=== PATIENT | female | born 1955 | race Caucasian/White ===

== ENCOUNTER → 2023-07-21 10:25 | Outpatient (REF) | payer OTHER, MEDICARE, SELFPAY ==
[2023-07-21 11:06] LABS: % Basophils 0.5 % (0-2); % Eosinophils 4.7 % (0-6); % Immature Granulocytes 1.4 % (0-0.5); % Monocytes 8.5 % (1.7-9.3); % Neutrophils 76.9 % (42.2-75.2); Absolute Eosinophils 0.3 10^3/uL (0-0.7); Absolute Immature Granulocytes 0.1 10^3/uL (0-0.05); Absolute Lymphocytes 0.5 10^3/uL (1.2-3.4); Absolute Monocytes 0.5 10^3/uL (0.1-0.6); Absolute Neutrophils 4.4 10^3/uL (1.4-6.5); Hematocrit 26.5 % (37.0-47.0); Hemoglobin 8.3 g/dL (12.0-16.0); Mean Corp Hgb Conc. 31.3 g/dL (33.0-37.0); Mean Corpuscular Hgb 27.7 pg (27.0-31.0); Mean Corpuscular Volume 88.3 fL (81.0-99.0); Mean Platelet Volume 10.3 fL (7.4-10.4); Nucleated Red Blood Cells % 0 %; Platelet Count 356 10^3/uL (130-400); Red Cell Dist. Width 13.8 % (11.5-14.5); White Blood Cell Count 5.8 10^3/uL (4.8-10.8)
[2023-07-21 11:16] LABS: Blood Urea Nitrogen 40 mg/dl (7-17); Calcium 9.2 mg/dl (8.4-10.2); Carbon Dioxide 26 mmol/L (22-30); Chloride 100 mmol/L (98-107); Glucose 96 mg/dl (70-99); Potassium 5.1 mmol/L (3.5-5.1); Sodium 135 mmol/L (135-145); eGFR 50.23
== END ==
LOC: OLABP 10:25
PROVIDERS: ATTENDING PHYSICIAN Family Medicine
DX: S72.001D Fracture of unspecified part of neck of right femur, subsequent encounter for closed fracture with routine healing (principal); N17.9 Acute kidney failure, unspecified; I35.0 Nonrheumatic aortic (valve) stenosis; R26.2 Difficulty in walking, not elsewhere classified; M25.551 Pain in right hip
CPT/HCPCS: 36415; 80048; 85025

== ENCOUNTER → 2023-07-24 10:37 | Outpatient (REF) | payer OTHER, MEDICARE, SELFPAY ==
[2023-07-24 13:17] LABS: % Basophils 0.2 % (0-2); % Eosinophils 2.3 % (0-6); % Immature Granulocytes 0.8 % (0-0.5); % Lymphocytes 15.4 % (20.5-51.1); % Monocytes 8.3 % (1.7-9.3); Absolute Eosinophils 0.1 10^3/uL (0-0.7); Absolute Lymphocytes 0.8 10^3/uL (1.2-3.4); Absolute Monocytes 0.4 10^3/uL (0.1-0.6); Absolute Neutrophils 3.9 10^3/uL (1.4-6.5); Hematocrit 26.9 % (37.0-47.0); Hemoglobin 8.4 g/dL (12.0-16.0); Mean Corp Hgb Conc. 31.2 g/dL (33.0-37.0); Mean Corpuscular Hgb 28.2 pg (27.0-31.0); Mean Corpuscular Volume 90.3 fL (81.0-99.0); Mean Platelet Volume 10.7 fL (7.4-10.4); Nucleated Red Blood Cells % 0 %; Platelet Count 298 10^3/uL (130-400); Red Blood Cell Count 2.98 10^6/uL (4.20-5.40); Red Cell Dist. Width 13.9 % (11.5-14.5); White Blood Cell Count 5.3 10^3/uL (4.8-10.8)
[2023-07-24 13:28] LABS: Blood Urea Nitrogen 30 mg/dl (7-17); Calcium 8.6 mg/dl (8.4-10.2); Carbon Dioxide 25 mmol/L (22-30); Chloride 101 mmol/L (98-107); Glucose 94 mg/dl (70-99); Potassium 5.2 mmol/L (3.5-5.1); Sodium 135 mmol/L (135-145); eGFR > 60.00
== END ==
LOC: OLABP 10:37
PROVIDERS: ATTENDING PHYSICIAN Family Medicine
DX: S72.001D Fracture of unspecified part of neck of right femur, subsequent encounter for closed fracture with routine healing (principal); N17.9 Acute kidney failure, unspecified; I35.0 Nonrheumatic aortic (valve) stenosis; I10 Essential (primary) hypertension; R26.2 Difficulty in walking, not elsewhere classified; M25.551 Pain in right hip
CPT/HCPCS: 36415; 80048; 85025

== ENCOUNTER → 2023-07-27 11:10 | Outpatient (REF) | payer OTHER, MEDICARE, SELFPAY ==
[2023-07-27 11:31] LABS: % Basophils 0.3 % (0-2); % Eosinophils 2.6 % (0-6); % Immature Granulocytes 0.5 % (0-0.5); % Lymphocytes 16.4 % (20.5-51.1); % Monocytes 8.8 % (1.7-9.3); % Neutrophils 71.4 % (42.2-75.2); Absolute Eosinophils 0.2 10^3/uL (0-0.7); Absolute Monocytes 0.5 10^3/uL (0.1-0.6); Absolute Neutrophils 4.2 10^3/uL (1.4-6.5); Hematocrit 27.5 % (37.0-47.0); Hemoglobin 8.6 g/dL (12.0-16.0); Mean Corp Hgb Conc. 31.3 g/dL (33.0-37.0); Mean Corpuscular Hgb 27.8 pg (27.0-31.0); Mean Platelet Volume 10.4 fL (7.4-10.4); Nucleated Red Blood Cells % 0 %; Platelet Count 292 10^3/uL (130-400); Red Blood Cell Count 3.09 10^6/uL (4.20-5.40); Red Cell Dist. Width 13.8 % (11.5-14.5); White Blood Cell Count 5.8 10^3/uL (4.8-10.8)
[2023-07-27 11:39] LABS: Blood Urea Nitrogen 25 mg/dl (7-17); Calcium 8.6 mg/dl (8.4-10.2); Carbon Dioxide 26 mmol/L (22-30); Chloride 104 mmol/L (98-107); Glucose 84 mg/dl (70-99); Potassium 5.1 mmol/L (3.5-5.1); Sodium 135 mmol/L (135-145); eGFR > 60.00
== END ==
LOC: OLABP 11:10
PROVIDERS: ATTENDING PHYSICIAN Family Medicine
DX: S72.001D Fracture of unspecified part of neck of right femur, subsequent encounter for closed fracture with routine healing (principal); N17.9 Acute kidney failure, unspecified; I35.0 Nonrheumatic aortic (valve) stenosis; I10 Essential (primary) hypertension; R26.2 Difficulty in walking, not elsewhere classified; M25.551 Pain in right hip
CPT/HCPCS: 36415; 80048; 85025

== ENCOUNTER → 2023-08-10 14:43 | Outpatient (REF) | payer MEDICARE, SELFPAY ==
[2023-08-10 15:28] LABS: Blood Urea Nitrogen 51 mg/dl (7-17); Calcium 9.1 mg/dl (8.4-10.2); Carbon Dioxide 26 mmol/L (22-30); Chloride 105 mmol/L (98-107); Glucose 93 mg/dl (70-99); Potassium 4.5 mmol/L (3.5-5.1); Sodium 137 mmol/L (135-145); eGFR 50.23
== END ==
LOC: REG 14:43
PROVIDERS: ATTENDING PHYSICIAN Internal Medicine; FAMILY PHYSICIAN Physician Assistant; REFERRING PHYSICIAN Internal Medicine Cardiovascular Disease
DX: I50.32 Chronic diastolic (congestive) heart failure (principal)
CPT/HCPCS: 36415; 80048

== ENCOUNTER → 2023-10-05 11:47 | Outpatient (REF) | payer MEDICARE, SELFPAY ==
[2023-10-05 12:40] LABS: % Basophils 0.3 % (0-2); % Eosinophils 3.2 % (0-6); % Immature Granulocytes 0.2 % (0-0.5); % Lymphocytes 12.6 % (20.5-51.1); % Monocytes 7.8 % (1.7-9.3); % Neutrophils 75.9 % (42.2-75.2); Absolute Eosinophils 0.2 10^3/uL (0-0.7); Absolute Lymphocytes 0.7 10^3/uL (1.2-3.4); Absolute Monocytes 0.5 10^3/uL (0.1-0.6); Absolute Neutrophils 4.4 10^3/uL (1.4-6.5); Hematocrit 28.8 % (37.0-47.0); Mean Corp Hgb Conc. 31.3 g/dL (33.0-37.0); Mean Corpuscular Hgb 28.9 pg (27.0-31.0); Mean Corpuscular Volume 92.6 fL (81.0-99.0); Mean Platelet Volume 10.7 fL (7.4-10.4); Nucleated Red Blood Cells % 0 %; Platelet Count 229 10^3/uL (130-400); Red Blood Cell Count 3.11 10^6/uL (4.20-5.40); White Blood Cell Count 5.9 10^3/uL (4.8-10.8)
[2023-10-07 11:17] LABS: Albumin 3.67 g/dL (3.75-5.01); Alpha 1 Globulin 0.33 g/dL (0.19-0.46); Alpha 2 Globulin 0.76 g/dL (0.48-1.05); Free Kappa Light Chains,Quant 53.23 mg/L (3.30-19.40); Free Lambda Light Chains,Quant 25.12 mg/L (5.71-26.30); IgA 338 mg/dL (68-408); IgG 596 mg/dL (768-1632); IgM 248 mg/dL (35-263); Immunofixation Electrophoresis IFE Done; Kappa/Lambda Fr Light Ratio 2.12 (0.26-1.65); Total Protein-Electrophoresis 6.3 g/dL (6.3-8.2)
== END ==
LOC: REG 11:47
PROVIDERS: ATTENDING PHYSICIAN Internal Medicine Hematology & Oncology; FAMILY PHYSICIAN Physician Assistant
DX: D64.9 Anemia, unspecified (principal); R07.82 Intercostal pain
CPT/HCPCS: 36415; 82784; 83521; 84155; 84165; 85025; 86334

== ENCOUNTER → 2023-10-10 08:20 | Outpatient (REF) | payer MEDICARE, SELFPAY ==
[2023-10-10 10:12] LABS: Blood Urea Nitrogen 57 mg/dl (7-17); Calcium 9.2 mg/dl (8.4-10.2); Carbon Dioxide 24 mmol/L (22-30); Chloride 106 mmol/L (98-107); Glucose 88 mg/dl (70-99); Magnesium 2.3 mg/dl (1.6-2.3); Potassium 5.1 mmol/L (3.5-5.1); Sodium 137 mmol/L (135-145); eGFR 49.92
== END ==
LOC: REG 08:20
PROVIDERS: ATTENDING PHYSICIAN Internal Medicine; FAMILY PHYSICIAN Family Medicine
DX: I50.32 Chronic diastolic (congestive) heart failure (principal)
CPT/HCPCS: 36415; 80048; 83735

== ENCOUNTER → 2023-11-02 09:00 | Outpatient (REF) | payer MEDICARE, SELFPAY ==
[2023-11-02 06:00] VITALS: BMI 26.4
[2023-11-02 09:41] LABS: % Basophils 0.6 % (0-2); % Eosinophils 4.5 % (0-6); % Immature Granulocytes 0.6 % (0-0.5); % Lymphocytes 12.4 % (20.5-51.1); % Monocytes 6.9 % (1.7-9.3); Absolute Eosinophils 0.2 10^3/uL (0-0.7); Absolute Lymphocytes 0.7 10^3/uL (1.2-3.4); Absolute Monocytes 0.4 10^3/uL (0.1-0.6); Absolute Neutrophils 4.1 10^3/uL (1.4-6.5); Hematocrit 29.4 % (37.0-47.0); Hemoglobin 9.4 g/dL (12.0-16.0); Mean Corpuscular Hgb 29.2 pg (27.0-31.0); Mean Corpuscular Volume 91.3 fL (81.0-99.0); Mean Platelet Volume 10.2 fL (7.4-10.4); Nucleated Red Blood Cells % 0 %; Platelet Count 217 10^3/uL (130-400); Red Blood Cell Count 3.22 10^6/uL (4.20-5.40); Red Cell Dist. Width 13.2 % (11.5-14.5); White Blood Cell Count 5.4 10^3/uL (4.8-10.8)
[2023-11-02 09:45] LABS: INR 1.03; PT 13.3 Sec (11.4-14.6)
[2023-11-02 10:21] VITALS: BP 162/90; BP_SYST 65
[2023-11-02 10:30] VITALS: BP 175/92; BP_SYST 62
[2023-11-02] MEDS: ATIVAN 0.5 MG IV (11:08)
[2023-11-02] MEDS: NSS (PRESERVATIVE FREE) 0.25 ML IV (11:08)
[2023-11-02 12:01] VITALS: BP 159/74; BP_SYST 70
[2023-11-02 12:05] VITALS: BP 145/80; BP_SYST 70
[2023-11-02 12:15] VITALS: BP 143/96; BP_SYST 68
[2023-11-02 12:22] VITALS: BP 143/96
== END ==
LOC: RADI 09:00
PROVIDERS: ATTENDING PHYSICIAN Internal Medicine Hematology & Oncology; FAMILY PHYSICIAN Physician Assistant
DX: D64.9 Anemia, unspecified (principal); D68.9 Coagulation defect, unspecified
CPT/HCPCS: 88305; 88312; 36415; 38222; 77012; 85025; 85610; 88313; 88341; 88342

== ENCOUNTER → 2023-11-23 14:39 | Outpatient (REF) | payer MEDICARE, SELFPAY | LOC: WDC 14:39 | PROVIDERS: ATTENDING PHYSICIAN Physician Assistant | DX: Z12.31 Encounter for screening mammogram for malignant neoplasm of breast (principal) | CPT/HCPCS: 77063; 77067 ==

== ENCOUNTER → 2023-12-15 11:12 | Outpatient (REF) | payer MEDICARE, SELFPAY | LOC: RAD 11:12 | PROVIDERS: ATTENDING PHYSICIAN Family Medicine | DX: M79.604 Pain in right leg (principal); M79.89 Other specified soft tissue disorders | CPT/HCPCS: 93971 ==

== ENCOUNTER → 2023-12-21 06:58 | Day surgery (SDC) | payer MEDICARE, SELFPAY | LOC: CATH 06:58 | PROVIDERS: ATTENDING PHYSICIAN Internal Medicine; FAMILY PHYSICIAN Physician Assistant; OTHER PHYSICIAN Internal Medicine | DX: I35.0 Nonrheumatic aortic (valve) stenosis (principal); I34.0 Nonrheumatic mitral (valve) insufficiency; I11.0 Hypertensive heart disease with heart failure; I50.32 Chronic diastolic (congestive) heart failure; J45.909 Unspecified asthma, uncomplicated | CPT/HCPCS: 93312; 93320; 93325 ==

== ENCOUNTER → 2024-04-18 07:27 | Outpatient (REF) | payer MEDICARE, SELFPAY | LOC: RAD 07:27 | PROVIDERS: ATTENDING PHYSICIAN Physician Assistant | DX: Z87.81 Personal history of (healed) traumatic fracture (principal); Z78.0 Asymptomatic menopausal state | CPT/HCPCS: 77080 ==

== ENCOUNTER → 2024-06-17 09:47 | Outpatient (REF) | payer MEDICARE, SELFPAY | LOC: RAD 09:47 | PROVIDERS: ATTENDING PHYSICIAN Specialist; FAMILY PHYSICIAN Physician Assistant | DX: R31.29 Other microscopic hematuria (principal); R79.89 Other specified abnormal findings of blood chemistry | CPT/HCPCS: 76770 ==

== ENCOUNTER → 2024-10-07 10:48 | Outpatient (REF) | payer MEDICARE, SELFPAY ==
[2024-10-07 11:56] LABS: % Basophils 0.4 % (0-2); % Eosinophils 3.1 % (0-6); % Immature Granulocytes 0.4 % (0-0.5); % Lymphocytes 12.4 % (20.5-51.1); % Monocytes 6.1 % (1.7-9.3); % Neutrophils 77.6 % (42.2-75.2); Absolute Eosinophils 0.2 10^3/uL (0-0.7); Absolute Lymphocytes 0.9 10^3/uL (1.2-3.4); Absolute Monocytes 0.4 10^3/uL (0.1-0.6); Absolute Neutrophils 5.3 10^3/uL (1.4-6.5); Hematocrit 25.2 % (37.0-47.0); Hemoglobin 7.7 g/dL (12.0-16.0); Mean Corp Hgb Conc. 30.6 g/dL (33.0-37.0); Mean Corpuscular Hgb 28.6 pg (27.0-31.0); Mean Corpuscular Volume 93.7 fL (81.0-99.0); Mean Platelet Volume 10.2 fL (7.4-10.4); Nucleated Red Blood Cells % 0 %; Platelet Count 281 10^3/uL (130-400); Red Blood Cell Count 2.69 10^6/uL (4.20-5.40); Red Cell Dist. Width 13.2 % (11.5-14.5); White Blood Cell Count 6.9 10^3/uL (4.8-10.8)
== END ==
LOC: REG 10:48
PROVIDERS: ATTENDING PHYSICIAN Internal Medicine Hematology & Oncology; FAMILY PHYSICIAN Physician Assistant; OTHER PHYSICIAN Nurse Practitioner Primary Care
DX: D64.9 Anemia, unspecified (principal); R07.82 Intercostal pain; D63.1 Anemia in chronic kidney disease
CPT/HCPCS: 85025; 86850; 86900; 86901; 86920

== ENCOUNTER 2024-10-10 08:21 | Outpatient (RCR) | payer MEDICARE, SELFPAY ==
[2024-09-27 13:51] LABS: % Basophils 0.2 % (0-2); % Eosinophils 2.6 % (0-6); % Immature Granulocytes 0.6 % (0-0.5); % Lymphocytes 9.7 % (20.5-51.1); % Neutrophils 79.9 % (42.2-75.2); Absolute Eosinophils 0.3 10^3/uL (0-0.7); Absolute Immature Granulocytes 0.1 10^3/uL (0-0.05); Absolute Monocytes 0.7 10^3/uL (0.1-0.6); Absolute Neutrophils 8.3 10^3/uL (1.4-6.5); Hematocrit 24.1 % (37.0-47.0); Hemoglobin 7.3 g/dL (12.0-16.0); Mean Corp Hgb Conc. 30.3 g/dL (33.0-37.0); Mean Corpuscular Hgb 28.9 pg (27.0-31.0); Mean Corpuscular Volume 95.3 fL (81.0-99.0); Mean Platelet Volume 9.9 fL (7.4-10.4); Nucleated Red Blood Cells % 0 %; Platelet Count 331 10^3/uL (130-400); Red Blood Cell Count 2.53 10^6/uL (4.20-5.40); Red Cell Dist. Width 13.1 % (11.5-14.5); White Blood Cell Count 10.4 10^3/uL (4.8-10.8)
[2024-09-27 14:25] LABS: Iron 34 ug/dl (37-170)
[2024-09-27 14:34] LABS: Percent Saturation 12 % (20-50); Total Iron Binding Capacity 262 ug/dl (265-497)
[2024-09-29 11:17] VITALS: BP 150/78
[2024-09-29 11:36] VITALS: BP 140/80
[2024-09-29 14:17] VITALS: BP 135/73
[2024-10-10 08:30] VITALS: BP 154/75
[2024-10-10 08:56] VITALS: BP 154/68
[2024-10-10 09:11] VITALS: BP 143/81
[2024-10-10 11:32] VITALS: BP 144/83
[2024-10-10 15:10] VITALS: BP 140/60
== END 2024-10-19 23:59 | disposition home or self-care (01) ==
LOC: OID 08:21
PROVIDERS: ATTENDING PHYSICIAN Internal Medicine Hematology & Oncology; FAMILY PHYSICIAN Physician Assistant
DX: D64.9 Anemia, unspecified (principal); R07.82 Intercostal pain
CPT/HCPCS: 36415; 36430; 82728; 83540; 83550; 85025; 86850; 86900; 86901; 86920; P9016

== ENCOUNTER → 2024-10-24 14:49 | Outpatient (REF) | payer MEDICARE, SELFPAY | LOC: RAD 14:49 | PROVIDERS: ATTENDING PHYSICIAN Physician Assistant; FAMILY PHYSICIAN Physician Assistant | DX: L03.115 Cellulitis of right lower limb (principal); R59.0 Localized enlarged lymph nodes | CPT/HCPCS: 76536 ==

== ENCOUNTER → 2024-12-26 07:20 | Outpatient (REF) | payer MEDICARE, SELFPAY | LOC: RAD 07:20 | PROVIDERS: ATTENDING PHYSICIAN Physician Assistant; FAMILY PHYSICIAN Physician Assistant | DX: R22.1 Localized swelling, mass and lump, neck (principal) | CPT/HCPCS: 70491; Q9967 ==

== ENCOUNTER 2025-01-09 08:12 | Outpatient (RCR) | payer MEDICARE, SELFPAY ==
[2025-01-09 08:00] VITALS: BP 156/72
[2025-01-09 08:41] VITALS: BP 156/72
[2025-01-09 08:59] VITALS: BP 144/80
[2025-01-09 11:16] VITALS: BP 149/78
== END 2025-01-19 23:59 | disposition home or self-care (01) ==
LOC: OID 08:12
PROVIDERS: ATTENDING PHYSICIAN Internal Medicine Hematology & Oncology; FAMILY PHYSICIAN Physician Assistant
DX: D64.9 Anemia, unspecified (principal); N18.30 Chronic kidney disease, stage 3 unspecified (principal); D63.1 Anemia in chronic kidney disease; R07.82 Intercostal pain
CPT/HCPCS: 36415; 36430; 86850; 86900; 86901; 86920; P9016

== ENCOUNTER → 2025-04-10 15:04 | Outpatient (REF) | payer MEDICARE, SELFPAY | LOC: WDC 15:04 | PROVIDERS: ATTENDING PHYSICIAN Physician Assistant | DX: Z12.31 Encounter for screening mammogram for malignant neoplasm of breast (principal) | CPT/HCPCS: 77063; 77067 ==

== ENCOUNTER → 2025-06-02 13:18 | Outpatient (REF) | payer MEDICARE, SELFPAY ==
[2025-06-02 14:14] LABS: Hematocrit 26.7 % (37.0-47.0); Hemoglobin 8.1 g/dL (12.0-16.0); Mean Corp Hgb Conc. 30.3 g/dL (33.0-37.0); Mean Corpuscular Volume 90.8 fL (81.0-99.0); Nucleated Red Blood Cells % 0 %; Platelet Count 379 10^3/uL (130-400); Red Cell Dist. Width 13.2 % (11.5-14.5)
[2025-06-02 14:48] LABS: ALT (SGPT) 16 U/L (0-35); AST (SGOT) 18 U/L (14-36); Albumin 3.4 g/dl (3.5-5.0); Alkaline Phosphatase 102 U/L (38-126); Blood Urea Nitrogen 36 mg/dl (7-17); Calcium 8.5 mg/dl (8.4-10.2); Carbon Dioxide 20 mmol/L (22-30); Chloride 107 mmol/L (98-107); Glucose 90 mg/dl (70-99); Potassium 4.7 mmol/L (3.5-5.1); Sodium 135 mmol/L (135-145); Total Protein 6.4 g/dl (6.3-8.2); eGFR 41.24
== END ==
LOC: REG 13:18
PROVIDERS: ATTENDING PHYSICIAN Nurse Practitioner Family
DX: R06.02 Shortness of breath (principal); N18.32 Chronic kidney disease, stage 3b; I50.32 Chronic diastolic (congestive) heart failure
CPT/HCPCS: 36415; 71046; 80053; 83880; 85025

== ENCOUNTER 2025-06-02 20:36 | Inpatient (IN) | payer MEDICARE, SELFPAY ==
[2025-06-02] VITALS (7 sets, daily range): BP systolic 169–190; BP diastolic 79–94; BMI 23.9; BMI 23.0
--- NOTE | 2025-06-02 19:15 | ED.GENMED ---
History of Present Illness
General
Chief Complaint: Breathing Problem
Time Seen by Provider: 06/02/25 19:15
History of Present Illness
History of Present Illness:
FOCUSED PAST MEDICAL HISTORY
- Heart failure, CKD, iron deficiency anemia
REVIEW OF OLD RECORDS
- Echo showed last EF 55% from 2023
Note:
CHIEF COMPLAINT(S)
Difficulty breathing and swelling in the legs.
HISTORY OF PRESENT ILLNESS
The patient is a 69-year-old female with a known history of heart failure who presents to the emergency room with a primary complaint of difficulty breathing for the past few days. She describes the breathing as labored and acknowledges significant
swelling in her legs, which is noted to be pitting edema upon examination. She mentions intermittent leg swelling as a background condition, but it has become more pronounced in the current episode. The patient states she is on Lasix (Furosemide) 40
mg for fluid management.
The patients recent laboratory tests and chest x-ray were done earlier in the day at her family medicine clinic, and she was advised to come to the hospital based on the results. She is hypertensive and her oxygen saturation was 97%. Crackles were
noted upon auscultation of the lungs, consistent with heart failure. The patient denies any weight gain, chest pain, or history of chronic obstructive pulmonary disease (COPD). Her current blood pressure is on the higher side, and concerns about her
kidney function were discussed, noting a current creatinine level of 1.4 which was previously lower. The treating physician plans to initiate intravenous Lasix and nitroglycerin paste to assist in fluid and blood pressure management to avoid
exacerbating her breathing difficulty, acknowledging the risk of affecting kidney function.
PLAN
- Admit the patient to the hospital for management of heart failure.
- Administer intravenous Lasix for diuresis.
- Begin treatment with nitroglycerin paste for blood pressure management and heart failure preload reduction.
- Monitor kidney function closely due to potential impacts from diuresis.
- Continue to monitor vital signs and oxygen saturation levels.
- Observations and potential adjustments based on response to treatment.
PHYSICAL EXAM
General: Alert, no acute distress.
Skin: Warm, dry. Mild skin lesions noted.
Head: Normocephalic, atraumatic.
Neck: Supple, trachea midline.
Eyes, Ears, Nose, Mouth and Throat: Oral mucosa moist.
Cardiovascular: Normal peripheral perfusion, No edema. Some irregularity noted
Respiratory: Bibasilar rales. Maybe some mild conversational dyspnea.
Gastrointestinal: Abdomen nondistended.
Back: Normal range of motion, Normal alignment.
Musculoskeletal: 3+ bilateral lower extremity pitting edema noted without any significant calf tenderness
Neurological: Alert and oriented to person, place, time, and situation, No focal neurological deficit observed.
Psychiatric: Cooperative, appropriate mood & affect.
DIFFERENTIAL DIAGNOSIS
The Differential Diagnosis includes, in no particular order and is not limited to:
1. Acute exacerbation of congestive heart failure
2. Pulmonary edema
3. Renal insufficiency
4. Chronic kidney disease
5. Deep vein thrombosis
6. Pulmonary hypertension
7. Peripheral vascular disease
8. Cardiomyopathy
9. Acute respiratory distress syndrome
10. Left ventricular failure
RADIOLOGY
- Chest x-ray from earlier today showed moderate to severe worsening of the size of the cardiac silhouette, bilateral effusions, mild interstitial cardiogenic pulmonary edema
EKG
- Atrial bigeminy ventricular rate 82, nonspecific abnormality
LABS
- Labs from earlier today showed BNP 8510 (was 2270 in 202) a white count of 10.2, hemoglobin 8.1 which is slightly higher than prior, creatinine 1.4 which is up from 1.2 in 202
SUMMARY OF ENCOUNTER
The patient, a 69-year-old female with a known history of heart failure, was seen in the emergency department due to worsening shortness of breath and significant leg swelling. She reported labored breathing for the past several days, and
examination revealed pitting edema in her legs, consistent with heart failure exacerbation. Given her failure to respond adequately to oral furosemide (Lasix) and the presence of significant hypertension, the decision was made to admit her to the
hospital for intravenous diuresis and preload reduction to manage her symptoms effectively and address her blood pressure concerns.
DISPOSITION
Admit.
ASSESSMENT
Acute exacerbation of congestive heart failure, likely due to fluid overload and hypertension.
PLAN
- Initiate intravenous Lasix for fluid management and diuresis.
- Start treatment with nitroglycerin paste for blood pressure control and reduction in preload on the heart.
- Monitor kidney function closely due to concerns about potential impacts from intensified diuresis.
- Regular monitoring of vital signs and oxygen saturation.
- Adjust treatment plan as needed based on patient response.
INDEPENDENT REVIEW OF LABS AND INTERPRETATION OF TESTS
My independent review of the basic metabolic panel (BMP) indicates elevated creatinine at 1.4, suggesting a decline in renal function compared to previous levels.
Radiology:
My independent interpretation of the chest x-ray reveals findings consistent with pulmonary congestion related to congestive heart failure.
MEDICATION RECONCILIATION
- Administer intravenous furosemide (Lasix).
- Apply nitroglycerin paste for blood pressure management.
MEDICAL DECISION MAKING
-Chronic conditions affecting care: Heart failure, hypertension, renal insufficiency.
-Data:
Category 1:
I reviewed the patients external outpatient records which indicated renal function compromise.
My independent interpretation of the chest x-ray confirmed pulmonary edema likely related to heart failure exacerbation.
Category 3:
Discussion of management with admitting hospitalist regarding plan for IV diuresis and preload reduction.
-Risk:
Prescription drug management involves IV furosemide, which poses risks to renal function and necessitates close monitoring. Admission for intensive inpatient management of acute heart failure exacerbation.
DIAGNOSIS
- Acute exacerbation of congestive heart failure (I50.9)
- Hypertensive heart disease with heart failure (I11.0)
UPDATE
- Worsening SOB/SETH past few days
- Known to Danilo for HFpEF
- PMD ordered labs then spoke to Danilo
- Outpatient labs today showed BNP 8510 up from 2270, Cr 1.4 (slightly worse).
- CXR shows cardiomegaly, b/l effusions and interstitial edema.
- Here, she is hypertensive w/ systolics in 170s-190.
- Giving NTP and Lasix.
- Already on oral Lasix as outpt.
Past History
Past History
ED Past Medical History: HTN, Psychiatric and Other (pneumonia, covid 07/13)
ED Past Surgical History: None
Social History
Tobacco: Non-smoker
Alcohol: None
Drug: None
Personal:
Living: with family
Employment: Not employed
Family History
Family History: Other (Noncontributory)
Phy Exam
Physical Exam
Physical Exam:
See HPI
Scores
Heart Failure Risk
Heart Failure Risk Score: Not Applicable
Course
Orders/Labs/Results
Orders:
Orders
06/02/25 16:56
EKG [Electrocardiogram (*1)] Urgent
Reason for Study: Tachycardia
EKG- Treatment ONCE
06/02/25 19:23
Furosemide [Lasix] 40 mg IV NOW STA
Nitroglycerin Ointment [Nitro-Bid] 1 inch TOPICAL NOW STA
06/02/25 19:32
Add On- LAB Urgent
Tests Added?: iron, TIBC, ferritin
06/02/25 19:47
Admit/Transfer Patient As Directed
Co-Sign Provider:
Level of Care: Inpatient admission
Assign to:: Telemetry
Physician / Group: jl
Diagnosis: chf exacerbation
Reason for Telemetry: Acute Heart Failure
Date to Stop Telemetry: 06/05/25
Time to Stop Telemetry: 11:00
Reason for Hospitalization: chf exacerbation
Expected length of stay greater than two midnights?: Yes
ELOS- Estimated Length of Stay in days: 2
I certify the patient meets the requirements for IP care: Yes
PRN Pain Medication Management As Directed
May give lesser potent ordered pain med per pt: Yes
preference::
Protocol:: Medication orders for pain may be administered in a
manner that supports deferring to patient preference
when the pt is:
- Requesting an ordered lesser potent pain medication.
Least to most potent pain medications are defined
as: acetaminophen < NSAID < tramadol < opioids
(morphine, oxycodone, hydromorphone).
- Requesting a lesser dose of the same medication IF
ORDERED.
- Requesting a less intrusive route of administration
if both routes are prescribed by the provider (PO <
IV).
06/02/25 19:48
Code Status As Directed
Resuscitation Status: Full Code
06/02/25 19:49
HydrALAZINE [Apresoline] 10 mg IV Q6HPRN PRN
06/02/25 20:04
Complete Blood Count/With Diff Urgent
Comprehensive Metabolic Panel Urgent
Ferritin Urgent
Comment: ADD ON
Iron Urgent
Comment: ADD ON
Total Iron Binding Urgent
Comment: ADD ON
06/05/25 11:00
DC Protocol for Telemetry ONCE
Abnormal Lab Results
06/02/25
20:04
WBC 13.5 H 10^3/uL
(4.8-10.8)
RBC 2.64 L 10^6/uL
(4.20-5.40)
Hgb 7.6 L g/dL
(12.0-16.0)
Hct 23.9 L %
(37.0-47.0)
MCHC 31.8 L g/dL
(33.0-37.0)
Abs Immat Gran (auto) 0.1 H 10^3/uL
(0-0.05)
Absolute Neuts (auto) 12.0 H 10^3/uL
(1.4-6.5)
Absolute Lymphs (auto) 0.5 L 10^3/uL
(1.2-3.4)
Absolute Monos (auto) 0.7 H 10^3/uL
(0.1-0.6)
Neutrophils % 88.3 H %
(42.2-75.2)
Lymphocytes % 3.6 L %
(20.5-51.1)
Sodium 134 L mmol/L
(135-145)
Chloride 108 H mmol/L
(98-107)
Carbon Dioxide 17 L mmol/L
(22-30)
BUN 36 H mg/dl
(7-17)
Creatinine 1.4 H mg/dL
(0.6-1.0)
Calcium 8.2 L mg/dl
(8.4-10.2)
Iron 25 L ug/dl
(37-170)
TIBC 226 L ug/dl
(265-497)
% Saturation 11 L %
(20-50)
Ferritin 830.0 H ng/ml
(11.1-264.0)
Total Protein 6.2 L g/dl
(6.3-8.2)
Albumin 3.2 L g/dl
(3.5-5.0)
06/02/25 20:04
06/02/25 20:04
Vital Signs
Initial and Last Documented VS:
Initial Vital Signs
Temp Pulse Resp BP Pulse Ox
36.4 C 72 24 190/94 99
06/02/25 16:50 06/02/25 16:50 06/02/25 16:50 06/02/25 16:50 06/02/25 16:50
Last Documented Vital Signs
Temp Pulse Resp BP Pulse Ox
36.4 C 69 30 171/79 95
06/02/25 16:50 06/02/25 21:15 06/02/25 21:15 06/02/25 21:00 06/02/25 21:15
*Pulse Oximetry
SaO2: 97
Oxygen Mode of Delivery: Room air
Patient hypoxic: no
*Critical Care Note
Total Time (30-74mins, 75-104mins- exclusive of procedures): Not Applicable
ED Attending Note
-
Portions of this chart may have been created with voice recognition software.� Occasional wrong word or��sound alike� substitutions may have occurred due to the inherent limitations of voice recognition software.
Discharge Plan
Departure
Patient Disposition: Admit
Date of Disposition: 06/02/25
Time of Disposition: 19:34
Presentation/result/management discussed w/ accepting MD/DO: Hospitalist
Discharge Problem:
Acute exacerbation of CHF (congestive heart failure)
Interventions
Interventions:
*Risk Screen - Suicide Last Done: 06/02/25 16:50
*General Assessment Last Done: 06/02/25 16:50
*Neglect/Abuse Screening Last Done: 06/02/25 16:50
*ED COVID-19 Vaccine History Last Done: 06/02/25 16:50
*ED Influenza Vaccine History Last Done: 06/02/25 16:50
[facility] Fall Risk Assessment Tool Last Done: 06/02/25 19:11
ED- Cardiac Assessment Last Done: 06/02/25 19:11
ED- Pulmonary Assessment Last Done: 06/02/25 19:11
--- NOTE | 2025-06-02 19:50 | HPS.HSE ---
Family Physician
-
Family Physician: MABEL Keys
Chief Complaint
-
shortness of breath
History of Present Illness
69-year-old female past medical history of hypertension, HFpEF, moderate aortic stenosis, iron deficiency anemia, B12 deficiency, anxiety/depression, presenting with shortness of breath for few days and increased swelling in the legs. Patient was
previously at family medicine clinic and was told to come to the hospital. Patient denies any weight gain, chest pain. She denies any fevers or chills. She has slight cough.
She recently had constipation and took a stool softener and now is having daily bowel movements. She had an episode of vomiting today. Does have some headache.
Denies smoking or alcohol use.
Medical History
Past Medical History
Past Medical History: Reports Other (hypertension, HFpEF, moderate aortic stenosis, iron deficiency anemia, B12 deficiency, anxiety/depression)
Past Surgical History: Reports None
Social History
Tobacco: Non-smoker
Alcohol: None
Drug: None
Family History
Family History: Not pertinent
Allergies / Home Medications
Allergies reflects when Allergies were last updated in [employer].
Home Medications with original date entered in [employer]
Allergy/Medication List:
Allergies
Allergy/AdvReac Type Severity Reaction Status Date / Time
albuterol Allergy Mild Unknown Verified 06/02/25 16:56
steroids Allergy Severe Psychosis Uncoded 06/02/25 16:56
Home Medications
amlodipine 5 mg tablet 5 mg PO DAILY 11/02/23
furosemide 40 mg tablet 40 mg PO DAILY 11/02/23
carvedilol 6.25 mg tablet 12.5 mg PO BID 12/21/23
acetaminophen 325 mg tablet (Tylenol) 650 mg PO Q6HPRN PRN mild pain 06/02/25
rosuvastatin 5 mg tablet (Crestor) 5 mg PO QPM High Cholesterol 06/02/25
Review of Systems
-
History Source: Patient
A 12 point ROS was completed and negative except as noted: Yes
Constitutional: Reports No Symptoms
EENT: Reports No Symptoms
Respiratory: Reports No Symptoms
Cardiac: Reports No Symptoms
Abdomen/GI: Reports No Symptoms
: Reports No Symptoms
Musculoskeletal: Reports No Symptoms
Skin: Reports No Symptoms
Neurological: Reports No Symptoms
Endocrine: Reports No Symptoms
Hematologic/Lymphatic: Reports No Symptoms
Psych: Reports No Symptoms
Physical Exam
Vital Signs
Vital Signs
Temp Pulse Resp BP Pulse Ox
97.6 F 77 23 177/93 97
06/02/25 16:50 06/02/25 19:05 06/02/25 19:05 06/02/25 19:04 06/02/25 19:19
Physical Exam
General: Well Developed, Well Nourished and No Apparent Distress
HEENT: NormoCephalic, Moist mucous membranes and Atraumatic
Respiratory: Rales
Cardiac: S1/S2, Regular Rhythm and Peripheral Edema; No Murmur or Rub
GI: Soft, Non Tender, Non Distended and Normal Bowel Sounds; No Organomegaly
Rectal: Deferred by Provider
Musculoskeletal: No Clubbing, No Cyanosis and No Edema
Skin: No Rash
Neuro: Nonfocal/grossly intact
Laboratory Results
-
06/02/25 19:16
06/02/25 19:16
Laboratory Results
Total Bilirubin Cancelled 06/02/25 19:16
AST Cancelled 06/02/25 19:16
ALT Cancelled 06/02/25 19:16
Alkaline Phosphatase Cancelled 06/02/25 19:16
Data Reviewed
-
Lab Data: Labs Reviewed by me
Old Records: Reviewed
Impression/Plan
-
IMPRESSION:
PLAN:
# Acute HFpEF exacerbation
-Cardiac BNP 8500
-EKG shows sinus rhythm with premature atrial complexes
- Chest x-ray shows moderate to severe enlargement of the cardiac silhouette increased in size since 07/01 possibly indicating cardiomyopathy or enlarging pericardial effusion, small bilateral pleural effusions, mild interstitial cardiogenic
pulmonary edema
- Check I's and O's, daily weight
- 40 IV Lasix daily
-Nitropaste given
- Cardiology consulted
# Hypertensive emergency
- Blood pressure 190/94
-Monitor with diuresis
- As needed hydralazine
- Continue amlodipine
- Continue Coreg
Chronic kidney disease
- Creatinine of 1.4 from 1.2 last year
Moderate aortic stenosis
Iron deficiency anemia
- Hemoglobin stable 8.1
B12 deficiency
Anxiety/depression
Full code
DVT prophylaxis�heparin
Cardiac diet
[2025-06-02] MEDS: NITRO-BID 1 INCH TOPICAL (20:05)
[2025-06-02] MEDS: LASIX 40 MG IV (20:07)
[2025-06-02 20:16] LABS: Hematocrit 23.9 % (37.0-47.0); Hemoglobin 7.6 g/dL (12.0-16.0); Mean Corp Hgb Conc. 31.8 g/dL (33.0-37.0); Mean Corpuscular Volume 90.5 fL (81.0-99.0); Nucleated Red Blood Cells % 0 %; Platelet Count 331 10^3/uL (130-400); Red Cell Dist. Width 13.2 % (11.5-14.5)
[2025-06-02 20:33] LABS: ALT (SGPT) 16 U/L (0-35); AST (SGOT) 22 U/L (14-36); Albumin 3.2 g/dl (3.5-5.0); Alkaline Phosphatase 109 U/L (38-126); Blood Urea Nitrogen 36 mg/dl (7-17); Calcium 8.2 mg/dl (8.4-10.2); Carbon Dioxide 17 mmol/L (22-30); Chloride 108 mmol/L (98-107); Estimated Creatinine Clearance 44 ml/min; Glucose 93 mg/dl (70-99); Iron 25 ug/dl (37-170); Potassium 4.5 mmol/L (3.5-5.1); Sodium 134 mmol/L (135-145); Total Protein 6.2 g/dl (6.3-8.2); eGFR 41.24
[2025-06-02 20:42] LABS: Total Iron Binding Capacity 226 ug/dl (265-497)
[2025-06-02 21:19] LABS: Ferritin 830.0 ng/ml (11.1-264.0)
--- NOTE | 2025-06-02 22:49 | PTCARENOTE ---
Recieved pt. from ED. Pt. ambulated from stretcher to bed with 1 assist. Pt. dyspneic on exertion. PO 98%. BP 185/90. Pt. AAOx3, oriented to unit, and callbell placed within reach. Pt. care ongoing
[2025-06-02] MEDS: COREG 12.5 MG PO (23:12)
[2025-06-02] MEDS: HEPARIN 5000 UNITS SC (23:12)
[2025-06-03] VITALS (8 sets, daily range): BP systolic 142–159; BP diastolic 71–85; PULSE 74; O2SAT 99; BMI 23.1
[2025-06-03 08:44] LABS: Hematocrit 22.3 % (37.0-47.0); Hemoglobin 7.2 g/dL (12.0-16.0); Mean Corp Hgb Conc. 32.3 g/dL (33.0-37.0); Mean Corpuscular Volume 89.6 fL (81.0-99.0); Nucleated Red Blood Cells % 0 %; Platelet Count 309 10^3/uL (130-400); Red Cell Dist. Width 13.2 % (11.5-14.5)
[2025-06-03] MEDS: COREG 12.5 MG PO ×2 (08:59→20:47)
[2025-06-03] MEDS: NORVASC 5 MG PO (08:59)
[2025-06-03] MEDS: HEPARIN 5000 UNITS SC ×2 (09:00→20:48)
[2025-06-03] MEDS: LASIX 40 MG IV ×2 (09:03→16:07)
[2025-06-03 09:18] LABS: ALT (SGPT) 15 U/L (0-35); AST (SGOT) 18 U/L (14-36); Albumin 3.0 g/dl (3.5-5.0); Alkaline Phosphatase 94 U/L (38-126); Blood Urea Nitrogen 35 mg/dl (7-17); Calcium 8.2 mg/dl (8.4-10.2); Carbon Dioxide 19 mmol/L (22-30); Chloride 109 mmol/L (98-107); Estimated Creatinine Clearance 36 ml/min; Glucose 87 mg/dl (70-99); Potassium 4.8 mmol/L (3.5-5.1); Sodium 135 mmol/L (135-145); Total Protein 5.9 g/dl (6.3-8.2); eGFR 32.66
--- NOTE | 2025-06-03 11:46 | CON.CAR ---
Addendum entered and electronically signed by Davey Cristobal MD 06/03/25 17:12:
I saw and examined the patient independently and performed majority of MDM.
The TRUCK OPERATOR's note was reviewed and I agree with the note with changes/additions below.
Comment: 69 yo female with PMH of chronic HFPEF, mild , CKD3b is admitted with SOB and edema. Exam with RRR, II/ systolic murmur at RUSB, 2+ LE edema. Cr 1.7. Tele: SR, PAC's, brief SVT.
Acute on chronic HFPEF. Severe, requiring hospitalization for IV diuresis, with close monitoring of labs/tele. Continue lasix 40mg IV bid. It seems patient prefers minimal meds overall.
Brief SVT. Trend tele. No sxs. Continue coreg 12.5mg bid.
Cardiomegaly on CXR. Echo this admission.
HTN. If BP remains elevated, will increase coreg given the PAC's and SVT.
Original Note:
Consultation
Consultation Request
Date/Time Consultation Requested: 06/03/2025 1100
Date/Time Consultation Performed: 06/03/2025 1130
Requesting Provider: Dr. Bhatt
Performing Provider: Dr. Cristobal
Reason for Consultation: CHF
Medical History
-
Chief Complaint: SOB, LE edema
History of Present Illness:
69-year-old patient with chronic heart failure preserved ejection fraction, mild , mild to moderate MR, hypertension, familial hypercholesterolemia, anemia, CKD stage IIIb followed by nephrology, membranoproliferative glomerulonephritis,
hypertension and hyperkalemia who presented to the emergency room with worsening shortness of breath and lower extremity edema over the last week. She feels her symptoms worsened over the last 24 hours as well. Her weight at home was not
significantly changed. She has had a significant increase in her bilateral lower extremity edema. She states she has been compliant with her diuretics. She has been eating takeout more frequently however has been compliant with her fluid
restrictions. She also notes a cough over the last 1 to 2 weeks. She chronically sleeps propped because of her back however over the last several days had been spending more time in the recliner because of her breathing. She denies chest pain or
palpitations. She usually ambulates with her walker or cane and denies chest pain with those activities.
Past Medical History
Past Medical History: Other (Hypertension, heart failure preserved ejection fraction, mild , mild to moderate MR, hypertension, familial hypercholesterolemia, membrane proliferative glomerulonephritis, hyperkalemia, CKD 3B, proteinuria, venous
insufficiency, osteoporosis, hepatomegaly)
Social History
Tobacco: Non-Smoker
Alcohol: None
Family History
Family History: Reviewed & Not Pertinent
Allergies / Home Medications
Allergy/AdvReac Type Severity Reaction Status Date / Time
albuterol Allergy tingling Verified 06/02/25 22:29
face
steroids Allergy Psychosis Uncoded 06/02/25 22:29
�Medication �Instructions �Recorded �Confirmed �Type
amlodipine 5 mg tablet 5 mg PO DAILY Blood Pressure 11/02/23 06/02/25 History
furosemide 40 mg tablet 40 mg PO DAILY Fluid 11/02/23 06/02/25 History
Retention/Swelling
carvedilol 6.25 mg tablet 12.5 mg PO BID Heart 12/21/23 06/02/25 History
Disease/Condition
acetaminophen 325 mg tablet 650 mg PO Q6HPRN PRN mild pain 06/02/25 06/02/25 History
(Tylenol)
rosuvastatin 5 mg tablet (Crestor) 5 mg PO QPM High Cholesterol 06/02/25 06/02/25 History
Review of Systems
-
History Source: Patient
Constitutional: Fatigue
EENT: No Symptoms
Respiratory: Trouble Breathing
Cardiac: No Symptoms
Abdomen/GI: No Symptoms
: No Symptoms
Neurological: No Symptoms
Physical Exam
Vital Signs
Temp Pulse Resp BP Pulse Ox
98.8 F 58 18 156/83 98
06/03/25 11:25 06/03/25 11:25 06/03/25 11:25 06/03/25 11:25 06/03/25 11:25
Lab Results
06/03/25 08:15
06/03/25 08:15
Physical Exam
General: Well Developed, Well Nourished and No Apparent Distress
Respiratory: Crackles
Cardiac: S1/S2, Regular Rhythm and Murmur (3/6 RIANNA RUSB)
Breast: Deferred by me
GI: Soft, Non Distended and Normal Bowel Sounds
Neuro: AO x 3
Impression / Plan
-
Acute on chronic heart failure preserved ejection fraction
- Patient with increased shortness of breath and lower extremity edema at least over the last week. Patient had been compliant with her diuretics at home per her report.
- BNP 8510, chest x-ray with small bilateral pleural effusions possible pericardial effusion and increased cardiac silhouette.
- Patient requires inpatient admission for intensive monitoring with IV diuretics and lab monitoring of her CKD 3B.
- Continue with fluid and sodium restrictions
- Update echocardiogram
-OP titration of GDMT has been limited as patient has wanted to limit the amount of medication she is on.
Mild aortic stenosis
- Update echo
Hypertension: Continue to monitor with diuresis
Familial hyperlipidemia
-On chronic low-dose statin. Has not been able to tolerate higher doses.
-
CKD 3B
-Followed by nephrology.
-Creatinine increased with IV diuretics. Will need intensive monitoring while on continued IV diuretics.
Possible pericardial effusion on CXR:
- check echo. No hypotension or symptoms of tamponade currently.
Chronic anemia:
-monitor hgb
Data Reviewed
-
EKG: Tracing Personally Visualized and interpreted (EKG 06/02/25: SR PAC's 82 bpm non specific T wave abn )
Radiology: Report Reviewed by me (CXR: 1. Moderate to severe enlargement of the cardiac silhouette which has increased in size since 07/01/2023. Diagnostic possibilities are (1) cardiomyopathy or (2) an enlarging pericardial effusion. 2. Small
bilateral pleural effusions (left larger than right). 3. Mild interstitial cardiogeni)
Medical Tests (Nuc Med, Echo etc): Report Reviewed by me (SUSY 12/21/23 : Normal biventricular size and systolic function without regional wall motion abnormality. Estimated LVEF 55%. Mild/moderate mitral regurgitation. Trileaflet aortic valve.
There is more focal thickening/calcification of the NCC. Mild aortic stenosis. NIKOLE by planimetry approx 2.2 c)
Labs: Labs Reviewed by me, Discussed with Physician and Discussed with Patient
Old Records: Reviewed
Critical Care Time (in minutes): OP OV notes summarized as above.
--- NOTE | 2025-06-03 14:04 | W.PN.HOSP.TC ---
Today's Communication/Plan
-
see note
Assessment / Plan
Assessment / Plan
# Acute on chronic diastolic congestive heart failure
-Presented with some exertional dyspnea and lower extremity swelling
-Cardiac BNP 8500
-Chest x-ray showing enlarging pericardial effusion, small bilateral pleural effusion and mild cardiogenic pulmonary
-Maintained on IV Lasix 40 mg daily
-Follow-up weight and creatinine
-Lower extremity Ifeanyi wrap ordered
-cardiology evaluation requested
# Pericardial effusion
-Largely asymptomatic, cardio requesting a repeat echocardiogram
# Hypertensive urgency
Hypertension
-Patient did not have any overt endorgan damage with hypertension, ruling out hypertensive emergency.
-Maintain on Norvasc/Coreg
#GISELA on Chronic kidney disease
Metabolic acidosis
- Baseline creatinine of 1.4 with GFR ~ 40,
- f/us with Dr Castañeda
- Renal function bumped to 1.7 today, monitor with diuresis
- bladder scab protocol ordered
- Met acidosis with renal dysfunction
#Anemia of chronic renal disease
-Hbg 7-8 range for last year
-No signs of GI blood loss, not on DOAC/warfarin
-EPO has been discussed by nephrology, patient have refused.
-Serum Iron 25, Sat 11%, Ferritin 830
#Hyponatremia
-mild, monitor
Moderate aortic stenosis
B12 deficiency
Anxiety/depression
Full code
DVT prophylaxis�heparin
Discussed care with cardiology
Anticipated Discharge: 24 - 48 hours
Subjective/Interval History
-
Date of Service: June 03, 2025
Exertional dyspnea has improved
No chest pain/palpitation
Objective Data
-
Labs:
Laboratory Results
06/03/25
08:15
WBC 10.3
Hgb 7.2 L
Hct 22.3 L
Plt Count 309
Sodium 135
Potassium 4.8
Chloride 109 H
Carbon Dioxide 19 L
BUN 35 H
Creatinine 1.7 H
Glucose 87
Calcium 8.2 L
Total Bilirubin 0.5
AST 18
ALT 15
Alkaline Phosphatase 94
Vital Signs:
Vital Signs
Temp Pulse Resp BP Pulse Ox
98.8 F 58 18 156/83 98
06/03/25 11:25 06/03/25 11:25 06/03/25 11:25 06/03/25 11:25 06/03/25 11:25
I&O
06/02/25 06/03/25 06/04/25
06:59 06:59 06:59
Intake Total 480 / 480
Output Total 100 / 100
Balance 380 / 380
Review of Systems
-
Respiratory: Reports No Symptoms
Cardiac: Reports No Symptoms
Abdomen/GI: Reports No Symptoms
Physical Exam
-
General: Comfortable
HEENT: Negative Oxygen
Respiratory: Clear to Auscultation
Cardiac: Regular Rhythm and S1/S2; Negative Murmur or Rub
Musculoskeletal: Edema, Right Lower Extrem and Edema, Left Lower Extrem
Neuro: Awake, Alert, Oriented, No Motor Deficits and Nonfocal/Grossly Intact
Psych: Calm
--- NOTE | 2025-06-03 14:26 | PTOTSP ---
Patient presents at baseline functionally and self reports that she feels that she is I with all functional mobility. Patient has no concerns about going home once she is cleared medically. She declined any further need for services while in house
or at home. At this time, there are no needs for skilled care while in house and anticipate no needs upon DC. Did educate patient to continue to mobilize to maintain function, however, asked patient to don sneakers or geriatric physician socks to ambulate for
safety. Also to alert staff of any decline functionally so that PT could be reconsulted to address. Otherwise, patient is at her baseline and will sign off.
[2025-06-03] MEDS: TYLENOL 650 MG PO (17:29)
[2025-06-04 03:47] VITALS: BP 150/91
[2025-06-04 06:00] VITALS: BMI 23.1
[2025-06-04 07:16] LABS: Blood Urea Nitrogen 36 mg/dl (7-17); Calcium 8.2 mg/dl (8.4-10.2); Carbon Dioxide 19 mmol/L (22-30); Chloride 108 mmol/L (98-107); Estimated Creatinine Clearance 38 ml/min; Glucose 90 mg/dl (70-99); Potassium 4.6 mmol/L (3.5-5.1); Sodium 136 mmol/L (135-145); eGFR 35.13
[2025-06-04 07:35] VITALS: BP 156/99
[2025-06-04] MEDS: NORVASC 5 MG PO (08:21)
[2025-06-04] MEDS: COREG 12.5 MG PO (08:21)
[2025-06-04] MEDS: LASIX 40 MG IV ×2 (08:22→17:22)
[2025-06-04] MEDS: HEPARIN 5000 UNITS SC ×2 (08:27→20:58)
--- NOTE | 2025-06-04 10:43 | W.PN.HOSP.TC ---
Today's Communication/Plan
-
maintain on diuretics
coreg dose increased
f/u cr/weight
TTE tomorrow
Assessment / Plan
Assessment / Plan
# Acute on chronic diastolic congestive heart failure
-Presented with some exertional dyspnea and lower extremity swelling
-Cardiac BNP 8500
-Chest x-ray showing enlarging pericardial effusion, small bilateral pleural effusion and mild cardiogenic pulmonary
-Maintained on IV Lasix 40 mg daily
-Follow-up weight and creatinine
-Lower extremity Ifeanyi wrap ordered
-cardiology evaluation requested
# R/o worsening Pericardial effusion
-Largely asymptomatic, xr suggestive of effusion.
-repeat TTE tomorrow
# Hypertensive urgency - Improved
Hypertension
-Patient did not have any overt end-organ damage with hypertension, ruling out hypertensive emergency.
-Increasing dose of coreg to 25mg/bid. on norvasc 5mg/d as well.
#GISELA on Chronic kidney disease
Metabolic acidosis
- Baseline creatinine of 1.2-1.4 with GFR ~ 40,
- f/us with Dr Castañeda
- Renal function bumped to 1.7 on ER lab, trending down.
- bladder scab protocol ordered
- Met acidosis with renal dysfunction
#Anemia of chronic renal disease
-Hbg 7-8 range for last year
-No signs of GI blood loss, not on DOAC/warfarin
-EPO has been discussed by nephrology, patient have refused.
-Serum Iron 25, Sat 11%, Ferritin 830
#Hyponatremia -resolved
Moderate aortic stenosis
B12 deficiency
Anxiety/depression
Full code
DVT prophylaxis�heparin
Anticipated Discharge: 24 - 48 hours
Subjective/Interval History
-
Date of Service: June 04, 2025
still have some dry cough on deep inspiration
no new issues reported
Objective Data
-
Labs:
Laboratory Results
06/04/25
06:40
Sodium 136
Potassium 4.6
Chloride 108 H
Carbon Dioxide 19 L
BUN 36 H
Creatinine 1.6 H
Glucose 90
Calcium 8.2 L
Vital Signs:
Vital Signs
Temp Pulse Resp BP Pulse Ox
98.6 F 80 20 156/99 98
06/04/25 07:35 06/04/25 07:35 06/04/25 07:35 06/04/25 07:35 06/04/25 07:35
I&O
06/03/25 06/04/25 06/05/25
06:59 06:59 06:59
Intake Total 480 / 480 980 / 980
Output Total 100 / 100 1645 / 1645
Balance 380 / 380 -665 / -665
Review of Systems
-
Respiratory: Reports No Symptoms
Cardiac: Reports No Symptoms
Abdomen/GI: Reports No Symptoms
Physical Exam
-
General: Comfortable
HEENT: Negative Oxygen
Respiratory: Clear to Auscultation
Cardiac: Regular Rhythm and S1/S2; Negative Murmur or Rub
Musculoskeletal: Edema, Right Lower Extrem and Edema, Left Lower Extrem
Neuro: Awake, Alert, Oriented, No Motor Deficits and Nonfocal/Grossly Intact
Psych: Calm
--- NOTE | 2025-06-04 11:12 | W.PN.CD ---
Today's Communication / Plan
-
continue lasix 40mg IV bid
echo tomorrow
Impression / Plan
-
Acute on chronic heart failure preserved ejection fraction
-severe, requiring hospitalization for IV diuretics and close monitoring of labs/tele
-OP titration of GDMT has been limited as patient has wanted to limit the amount of medication she is on.
-continue lasix 40mg IV bid
Cardiomegaly on CXR
-echo: ? effusion, pericarditis
Mild aortic stenosis
- Update echo
Hypertension: Continue to monitor with diuresis
Familial hyperlipidemia
-On chronic low-dose statin. Has not been able to tolerate higher doses.
-
CKD 3B
-Followed by nephrology.
-Creatinine increased with IV diuretics. Will need intensive monitoring while on continued IV diuretics.
Physical Exam
Vital Signs/Labs
Vital Signs
Temp Pulse Resp BP Pulse Ox
98.6 F 80 20 156/99 98
06/04/25 07:35 06/04/25 07:35 06/04/25 07:35 06/04/25 07:35 06/04/25 07:35
06/03/25 06/04/25 06/05/25
06:59 06:59 06:59
Actual Weight 74.984 kg 75.041 kg
06/03/25 08:15
06/04/25 06:40
06/03/25
08:15
Zcy-R-Skatlhfybdg Pept [id number]
Physical Exam
Constitutional: No acute distress and Comfortable
EENT: Moist mucous membranes
Cardiovascular: Rhythm & rate is regular, Pedal edema present, JVD present and Systolic murmur present
Respiratory: Respiratory effort normal and Lungs clear to auscul.
Neuro/Psych: AO x 3
Data Reviewed
-
Date of Service: June 04, 2025
EKG: Other (Tele: SR, PAC's, brief pauses)
Labs: Labs Reviewed by me
[2025-06-04 11:28] VITALS: BP 151/76
--- NOTE | 2025-06-04 11:45 | CM ---
CM reviewed chart, patient seen bedside, initial assessment completed.
69-year-old female past medical history of hypertension, HFpEF, moderate aortic stenosis, iron deficiency anemia, B12 deficiency, anxiety/depression, presenting with shortness of breath for few days and increased swelling in the legs.
Patient resides with her father, one level home, 3-4 steps to enter.
Patient reports having a cane/walker in the home, railing to enter home.
Patient reports hx [facility] after hip fracture, VN after hip fracture, unsure agency.
PCP Sherrie Young, [facility], confirms prescription coverage.
Patient denies insecurities at home, confirms transport home.
CM will continue to follow for all d/c planning needs.
Plan; home no needs likely
[2025-06-04 15:30] VITALS: BP 162/98
[2025-06-04 19:45] VITALS: BP 172/94
[2025-06-04] MEDS: COREG 25 MG PO (20:59)
[2025-06-04] MEDS: TYLENOL 650 MG PO (21:00)
[2025-06-04 23:34] VITALS: BP 131/82
[2025-06-05 03:37] VITALS: BP 144/91
[2025-06-05 06:00] VITALS: BMI 22.9
[2025-06-05 07:00] VITALS: BP 162/96
[2025-06-05] MEDS: NORVASC 5 MG PO (08:32)
[2025-06-05] MEDS: HEPARIN 5000 UNITS SC ×2 (08:32→20:43)
[2025-06-05] MEDS: LASIX 40 MG IV (08:32)
[2025-06-05] MEDS: COREG 25 MG PO ×2 (08:32→20:44)
--- NOTE | 2025-06-05 09:11 | W.PN.HOSP.TC ---
Addendum entered and electronically signed by Kun Prado MD 06/05/25 17:29:
GISELA
Original Note:
Today's Communication/Plan
-
IV diuresis. Monitor renal function
Assessment / Plan
Assessment / Plan
Physical exam:
General: Acutely ill
HEENT: Normocephalic, Atraumatic and Moist Mucous Membranes
Respiratory: Clear to Auscultation; Negative Wheezes, Rales or Rhonchi
Cardiac: Regular Rhythm and S1/S2
GI: Soft, Nontender and Nondistended
Musculoskeletal: No Clubbing, No Cyanosis. There is bilateral lower extremity edema
Neuro: Awake, Alert and Oriented, no gross neurological deficits
Psych: Calm
A/P:
Acute on chronic HFpEF:
Increase Lasix to 80 mg twice a day today
Continue GDMT-continue carvedilol 25 g twice a day and added spironolactone 25 mg p.o. daily. Noticed cardiology limits GDMT due to patient preference of limited medications.
Cardiology on consult
Echocardiogram with normal EF 55 to 60%. Small pericardial effusion. Mild aortic stenosis with mean gradient 13 mmHg.
Anemia:
Latest hemoglobin 7.2
Likely anemia of chronic disease
No signs of active bleeding
Continue to monitor hemoglobin
CKD stage IIIb:
Ruled out GISELA
Creatinine today 1.6
Avoid nephrotoxic
Monitor renal function in a.m. while diuretics
Hyponatremia:
Mild
Trend
Hypertensive urgency:
Improved
Continue home antihypertensives and new addition.
Paroxysmal SVT:
Continue beta-mike
Hyperlipidemia:
Continue home statin
DVT prophylaxis:
Heparin SQ
CODE STATUS:
Full code
Total time spent on today's encounter was 52 minutes which included time spent in counseling the patient/family regarding diagnosis and treatment plan as listed above, goals of care, and symptom management. Case was discussed with nursing staff,
specialists, and care coordinators/case management. All labs and imaging personally reviewed by me. Remainder the time spent in detailed review of previous records, lab data, imaging, and other medical provider documentation.
Anticipated Discharge: 24 - 48 hours
Subjective/Interval History
-
Date of Service: June 05, 2025
Patient still short of breath. No chest pain. Afebrile
Objective Data
-
Labs:
Laboratory Results
06/05/25
07:54
Sodium Pending
Potassium Pending
Chloride Pending
Carbon Dioxide Pending
BUN Pending
Creatinine Pending
Glucose Pending
Calcium Pending
Vital Signs:
Vital Signs
Temp Pulse Resp BP Pulse Ox
98.0 F 78 18 162/96 99
06/05/25 07:00 06/05/25 07:00 06/05/25 07:00 06/05/25 07:00 06/05/25 07:00
I&O
06/04/25 06/05/25 06/06/25
06:59 06:59 06:59
Intake Total 980 / 980 640 / 640
Output Total 1645 / 1645 1375 / 1375
Balance -665 / -665 -735 / -735
[2025-06-05 09:29] LABS: Blood Urea Nitrogen 36 mg/dl (7-17); Calcium 8.4 mg/dl (8.4-10.2); Carbon Dioxide 20 mmol/L (22-30); Chloride 105 mmol/L (98-107); Estimated Creatinine Clearance 38 ml/min; Glucose 86 mg/dl (70-99); Potassium 4.7 mmol/L (3.5-5.1); Sodium 134 mmol/L (135-145); eGFR 35.13
--- NOTE | 2025-06-05 10:17 | W.PN.CD ---
Today's Communication / Plan
-
increase lasix to 80mg IV bid
add aldactone 25mg daily
echo
Impression / Plan
-
Overall, she prefers minimal meds due to possible side effects, reactions.
Acute on chronic heart failure preserved ejection fraction
-severe, requiring hospitalization for IV diuretics and close monitoring of labs/tele
-OP titration of GDMT has been limited as patient has wanted to limit the amount of medication she is on.
-increase lasix to 80mg IV bid
-add aldactone 25mg daily
Cardiomegaly on CXR
-echo: ? effusion, pericarditis
Mild aortic stenosis
- Update echo
Hypertension
-stop amlodipine in case contributing to edema, and add aldactone
-cont coreg 25mg bid
Brief SVT
-on tele, no sxs
-cont coreg
Familial hyperlipidemia
-On chronic low-dose statin. Has not been able to tolerate higher doses.
-
CKD 3B
-Followed by nephrology.
-Creatinine increased with IV diuretics. Will need intensive monitoring while on continued IV diuretics.
Physical Exam
Vital Signs/Labs
Vital Signs
Temp Pulse Resp BP Pulse Ox
98.0 F 78 18 162/96 99
06/05/25 07:00 06/05/25 07:00 06/05/25 07:00 06/05/25 07:00 06/05/25 07:00
06/04/25 06/05/25 06/06/25
06:59 06:59 06:59
Actual Weight 75.041 kg 74.389 kg
06/03/25 08:15
06/05/25 07:54
06/03/25
08:15
Aey-G-Dvysuklowdg Pept [id number]
Physical Exam
Constitutional: No acute distress and Comfortable
EENT: Moist mucous membranes
Cardiovascular: Rhythm & rate is regular, Pedal edema present, JVD present and Systolic murmur present
Respiratory: Respiratory effort normal and Lungs clear to auscul.
Neuro/Psych: AO x 3
Data Reviewed
-
Date of Service: June 05, 2025
EKG: Other (Tele: SR 60s, brief SVT)
Labs: Labs Reviewed by me
[2025-06-05 11:00] VITALS: BP 136/84
[2025-06-05] MEDS: ALDACTONE 25 MG PO (11:24)
[2025-06-05 15:00] VITALS: BP 151/93
--- NOTE | 2025-06-05 16:31 | PN.CDI ---
CDI
- -
CDI:
Physician Documentation Request
Admit Date: 06/02/25 20:36
Dear Doctor Eve,
06/03 progress notes state ' GISELA on chronic kidney disease.... Baseline creatinine 1.4 , renal function bumped to 1.7 today...'
06/05 progress note states 'Ruled out GISELA Creatinine today 1.6'
Laboratory Tests
06/02/25 06/03/25 06/04/25
20:04 08:15 06:40
Creatinine 1.4 H 1.7 H 1.6 H
06/05/25
07:54
Creatinine 1.6 H
Criteria for GISELA*
1 Increase in serum creatinine by > or = to 0.3 mg/dL (> or = to 26.5 micromol/L) within 48 hours, OR
2 Increase in serum creatinine to > or = to 1.5 times baseline, which is known or presumed to have occurred within 7 days, OR
3 Urine volume < 0.5 nL/kg/hour for six hours
Please clarify regarding GISELA diagnosis
GISELA
GISELA ruled out - please specify
Other
Use of terms such as suspected, likely, concern for, or probable (associated with a specific diagnosis that is being evaluated, monitored, or treated as if it exists) are acceptable and can be coded in the inpatient setting, when documented at the
time of discharge.
Thank you,
Juliana Coleman RN, BSN
CDI Specialist
tiger text
Please use your independent medical judgment in providing your response.
--- NOTE | 2025-06-05 16:50 | CM ---
Continues with IV Lasix. Not a candidate for VN. Pt anticipates DC tomorrow.
Plan: DC home no needs
[2025-06-05] MEDS: LASIX 80 MG IV (17:02)
[2025-06-05 19:00] VITALS: BP 168/99
[2025-06-05 23:00] VITALS: BP 145/82
[2025-06-06 03:00] VITALS: BP 149/90
[2025-06-06 07:20] VITALS: BP 162/91
[2025-06-06 08:23] LABS: Blood Urea Nitrogen 38 mg/dl (7-17); Calcium 8.5 mg/dl (8.4-10.2); Carbon Dioxide 23 mmol/L (22-30); Chloride 106 mmol/L (98-107); Estimated Creatinine Clearance 44 ml/min; Glucose 90 mg/dl (70-99); Potassium 4.9 mmol/L (3.5-5.1); Sodium 135 mmol/L (135-145); eGFR 41.24
--- NOTE | 2025-06-06 08:28 | W.PN.CD ---
Today's Communication / Plan
-
continue lasix 80mg IV bid
continue aldactone 25mg daily (new med)
awaiting AM labs
Impression / Plan
-
Overall, she prefers minimal meds due to possible side effects, reactions.
Acute on chronic heart failure preserved ejection fraction
-severe, requiring hospitalization for IV diuretics and close monitoring of labs/tele
-OP titration of GDMT has been limited as patient has wanted to limit the amount of medication she is on.
-continue lasix 80mg IV bid
-continue aldactone 25mg daily (new med)
Cardiomegaly on CXR
-small pericardial effusion on echo
Mild aortic stenosis
-stable on echo
Hypertension
-stoppe amlodipine in case contributing to edema, and added aldactone
-cont coreg 25mg bid
Brief SVT
-on tele, no sxs
-cont coreg
Familial hyperlipidemia
-she reports she stopped statin due to side effects
-can discuss non-statin as outpatient
-
CKD 3B
-Followed by nephrology.
Physical Exam
Vital Signs/Labs
Vital Signs
Temp Pulse Resp BP Pulse Ox
98 F 81 18 162/91 98
06/06/25 07:20 06/06/25 07:20 06/06/25 07:20 06/06/25 07:20 06/06/25 07:20
06/05/25 06/06/25 06/07/25
06:59 06:59 06:59
Actual Weight 74.389 kg
06/03/25 08:15
06/06/25 07:22
06/03/25
08:15
Dbd-E-Belyzmbfksu Pept [id number]
Physical Exam
Constitutional: No acute distress and Comfortable
EENT: Moist mucous membranes
Cardiovascular: Rhythm & rate is regular, Pedal edema present, JVD present and Systolic murmur present
Respiratory: Respiratory effort normal and Lungs clear to auscul.
Neuro/Psych: AO x 3
Data Reviewed
-
Date of Service: June 06, 2025
EKG: Other (Tele: SR, brief SVT)
Labs: Other (awaiting labs)
--- NOTE | 2025-06-06 08:30 | W.PN.HOSP.TC ---
Today's Communication/Plan
-
Discharge planning today
Assessment / Plan
Assessment / Plan
Physical exam:
General: No acute distress
HEENT: Normocephalic, Atraumatic and Moist Mucous Membranes
Respiratory: Clear to Auscultation; Negative Wheezes, Rales or Rhonchi
Cardiac: Regular Rhythm and S1/S2
GI: Soft, Nontender and Nondistended
Musculoskeletal: No Clubbing, No Cyanosis. No edema LE
Neuro: Awake, Alert and Oriented, no gross neurological deficits
Psych: Calm
A/P:
Acute on chronic HFpEF:
Oral Lasix per cardiology-discussed with cardio and cleared for d/c today.
Continue GDMT-continue carvedilol 25 g twice a day and added spironolactone 25 mg p.o. daily. Noticed cardiology limits GDMT due to patient preference of limited medications.
Cardiology on consult
Echocardiogram with normal EF 55 to 60%. Small pericardial effusion. Mild aortic stenosis with mean gradient 13 mmHg.
Anemia:
Latest hemoglobin stable
Likely anemia of chronic disease
No signs of active bleeding
Continue to monitor hemoglobin
GISELA on CKD stage IIIb:
Creatinine today improved
Avoid nephrotoxic
Monitor renal function as OP
Hypokalemia:
Replete and trend
Hyponatremia:
Mild
Trend
Hypertensive urgency:
Improved
Continue home antihypertensives and new addition.
Paroxysmal SVT:
Continue beta-mike
Hyperlipidemia:
Continue home statin
DVT prophylaxis:
Heparin SQ
CODE STATUS:
Full code
Anticipated Discharge: Today
Subjective/Interval History
-
Date of Service: June 06, 2025
Less sob. no cp
Objective Data
-
Labs:
Laboratory Results
06/06/25
07:22
Sodium 135
Potassium 4.9
Chloride 106
Carbon Dioxide 23
BUN 38 H
Creatinine 1.4 H
Glucose 90
Calcium 8.5
Vital Signs:
Vital Signs
Temp Pulse Resp BP Pulse Ox
98 F 81 18 162/91 98
06/06/25 07:20 06/06/25 07:20 06/06/25 07:20 06/06/25 07:20 06/06/25 07:20
I&O
06/05/25 06/06/25 06/07/25
06:59 06:59 06:59
Intake Total 640 / 640 980 / 980
Output Total 1375 / 1375 2300 / 2300
Balance -735 / -735 -1320 / -1320
[2025-06-06] MEDS: ALDACTONE 25 MG PO (08:59)
[2025-06-06] MEDS: COREG 25 MG PO (08:59)
[2025-06-06] MEDS: HEPARIN SC (08:59)
[2025-06-06] MEDS: LASIX 80 MG IV (08:59)
--- NOTE | 2025-06-06 11:13 | CM ---
CM reviewed chart, patient seen in chair.
Patient for d/c today. IMM verbally reviewed, reports she received form yesterday. Placed in chart.
Patient to transport self home, denies needs at this time.
CM will continue to follow.
Plan; home no needs
[2025-06-06 11:15] VITALS: BP 155/93
--- NOTE | 2025-06-06 11:40 | W.DCSUMMARY ---
Discharge Summary
Discharge Data
Date of Admission: 06/02/25
Date of Discharge: 06/06/25
Total time spent discharging patient (in min): 34
-
Pending Results: No
Hospital Course
Patient is 69 years old female with history of CHF, cardiac valvulopathy, hypertension, hyperlipidemia, CKD, came into the hospital with heart failure exacerbation. Patient was started on IV diuretics. Cardiology consulted. She had negative
balance throughout her hospital stay. She had brief episodes of SVT and was recommended to continue beta-blockers. Her blood pressure was uncontrolled initially but better control upon discharge. Updated echocardiogram showed EF of 55 to 60%,
mild aortic stenosis, no regional wall motion abnormalities, and no significant changes from prior. She had mild GISELA on CKD but remained stable while diuresis. Her GDMT has been limited due to patient's preference. Cardiology reached out to me
and cleared her for discharge today. She will be discharged on oral Lasix 80 mg daily and Aldactone 25 mg daily by cardiology recommendations. She also will have a follow-up BMP as outpatient that she prefers PCP to arrange. Otherwise, patient is
symptomatically much improved and has remained hemodynamically stable. Her creatinine upon discharge was 1.4 and her potassium is 4.9. She will be discharged in stable condition today.
Discharge duration: 34 minutes
Discharge Plan
-
Patient Disposition: Home (Routine Discharge)
Discharge Diagnosis/Procedures: Acute on chronic diastolic congestive heart failure. Hypertension. Acute kidney injury on chronic kidney disease. Hypokalemia.
Diet: Low Cholesterol, 2 Gram Sodium and Restrict fluids to 64 oz
Activity: As tolerated
Blood Work: Please PCP to order CBC, BMP, magnesium within 1 week.
Specialty Instructions: Weigh Daily- Call MD for wt gain/loss 3 lbs overnight/5 lbs in 1 week
Instructions: *CBC Heart Failure Instructions
Referrals:
Dylan Carrasco MD [Active, Cardiology] - 06/21/25 4:20 pm
Sherrie Young CRNP [Family Provider, Family Practice] - in less than 1 week
Prescriptions:
New
carvedilol 25 mg Tablet
25 mg PO BID 30 Days Qty: 60 0RF
spironolactone 25 mg Tablet
25 mg PO DAILY 30 Days Qty: 30 0RF
furosemide [Lasix] 80 mg tablet
80 mg PO DAILY Qty: 30 0RF
Continued
acetaminophen [Tylenol] 325 mg Tablet
650 mg PO Q6HPRN PRN (Reason: mild pain)
rosuvastatin [Crestor] 5 mg Tablet
5 mg PO QPM
Discontinued
furosemide 40 mg Tablet
40 mg PO DAILY
amlodipine 5 mg Tablet
5 mg PO DAILY
carvedilol 6.25 mg tablet
12.5 mg PO BID
Discharge Orders:
Discharge Patient (As Directed); Ordered 06/06/25
Ordered By: Kun Prado
Discharge Date and Time
Discharge Date/Time: 06/06/25 14:42
Print Language: MALAWIAN
--- NOTE | 2025-06-07 15:40 | W.HF.CON ---
Heart Failure
- LV Function
Left ventricular function study result: LV Ejection fraction >/= 50%
Ejection Fraction Percentage: 55-60
- ARNI
Patient already on ARNI: No
Heart Failure ARNI Not Indicated: LV Ejection Fraction >/= 40%
- ACEI/ARB
Patient already on ACEI/ARB: No
Heart Failure ACEI/ARB Not Indicated: LV Ejection Fraction > 40%
- Beta Chris
Patient already on Evidence Based Beta Chris: Yes
- Mineralocorticord Receptor Antagonist
Patient already on MRA: Yes
- SGLT-2 Inhibitor
Patient already on SGLT-2 Inhibitor: No
Heart Failure SGLT-2 Inhibitor Contraindication: Patient Refusal
- NYHA CHF Classification
NYHA CHF Classification Level: Class III - Symptoms w/ min exertion, interferes w/ nml daily activity
- ACC/AHA Stage
ACC/AHA Stage: Stage C: Symptomatic Heart Failure
== END 2025-06-06 14:42 | disposition home or self-care (01) | DRG 291 ==
LOC: 4 WEST ACU 20:36
PROVIDERS: Hospitalist; ADMITTING PHYSICIAN Hospitalist; ATTENDING PHYSICIAN Hospitalist; CONSULT PHYSICIAN Internal Medicine; EMERGENCY PHYSICIAN Emergency Medicine; FAMILY PHYSICIAN Nurse Practitioner Family
DX: I13.0 Hypertensive heart and chronic kidney disease with heart failure and stage 1 through stage 4 chronic kidney disease, or unspecified chronic kidney disease (principal); I50.33 Acute on chronic diastolic (congestive) heart failure; I16.1 Hypertensive emergency; I31.39 Other pericardial effusion (noninflammatory); E87.20 Acidosis, unspecified; E87.1 Hypo-osmolality and hyponatremia; I47.10 Supraventricular tachycardia, unspecified; N17.9 Acute kidney failure, unspecified; N18.32 Chronic kidney disease, stage 3b; I35.0 Nonrheumatic aortic (valve) stenosis; D50.9 Iron deficiency anemia, unspecified; E53.8 Deficiency of other specified B group vitamins; F32.A Depression, unspecified; F41.9 Anxiety disorder, unspecified; I16.0 Hypertensive urgency; D63.1 Anemia in chronic kidney disease; E87.6 Hypokalemia; Z79.899 Other long term (current) drug therapy
CPT/HCPCS: 36415; 71046; 80048; 80053; 82728; 83540; 83550; 83880; 85025; 93005; 93306; 96374; 97161; 99285

== ENCOUNTER → 2025-06-12 10:23 | Outpatient (REF) | payer MEDICARE, SELFPAY ==
[2025-06-12 12:22] LABS: Hematocrit 24.3 % (37.0-47.0); Hemoglobin 7.5 g/dL (12.0-16.0); Mean Corp Hgb Conc. 30.9 g/dL (33.0-37.0); Mean Corpuscular Volume 90.0 fL (81.0-99.0); Nucleated Red Blood Cells % 0 %; Platelet Count 310 10^3/uL (130-400); Red Cell Dist. Width 13.4 % (11.5-14.5)
[2025-06-12 13:17] LABS: ALT (SGPT) 12 U/L (0-35); AST (SGOT) 17 U/L (14-36); Albumin 3.5 g/dl (3.5-5.0); Alkaline Phosphatase 83 U/L (38-126); Blood Urea Nitrogen 45 mg/dl (7-17); Calcium 8.5 mg/dl (8.4-10.2); Carbon Dioxide 24 mmol/L (22-30); Chloride 105 mmol/L (98-107); Glucose 86 mg/dl (70-99); HDL Cholesterol 35 mg/dl; LDL Cholesterol, Calculated 170 mg/dl; Magnesium 2.1 mg/dl (1.6-2.3); Potassium 5.6 mmol/L (3.5-5.1); Sodium 137 mmol/L (135-145); Total Protein 6.4 g/dl (6.3-8.2); Very Low Density Lipoprotein 26 mg/dl (0-30); eGFR 32.66
== END ==
LOC: REG 10:23
PROVIDERS: ATTENDING PHYSICIAN Physician Assistant; FAMILY PHYSICIAN Nurse Practitioner Family
DX: E78.00 Pure hypercholesterolemia, unspecified (principal); Z68.25 Body mass index [BMI] 25.0-25.9, adult; R06.02 Shortness of breath; I50.33 Acute on chronic diastolic (congestive) heart failure; E87.6 Hypokalemia; N17.9 Acute kidney failure, unspecified; N18.9 Chronic kidney disease, unspecified; I10 Essential (primary) hypertension
CPT/HCPCS: 36415; 80053; 80061; 83735; 83880; 85025

== ENCOUNTER → 2025-06-16 10:25 | Outpatient (REF) | payer MEDICARE, SELFPAY ==
[2025-06-16 11:21] LABS: Hematocrit 23.2 % (37.0-47.0); Hemoglobin 7.2 g/dL (12.0-16.0); Mean Corp Hgb Conc. 31.0 g/dL (33.0-37.0); Mean Corpuscular Volume 92.8 fL (81.0-99.0); Nucleated Red Blood Cells % 0 %; Platelet Count 249 10^3/uL (130-400); Red Cell Dist. Width 13.3 % (11.5-14.5)
== END ==
LOC: REG 10:25
PROVIDERS: ATTENDING PHYSICIAN Nurse Practitioner Family; FAMILY PHYSICIAN Physician Assistant
DX: D64.9 Anemia, unspecified (principal)
CPT/HCPCS: 36415; 85025